=== PATIENT | male | born 1970 | race African-American/Black ===

== ENCOUNTER 2021-02-26 07:31 | Day surgery (SDC) | payer OTHER ==
[~2021-02-26] VITALS: Ht 182.9 cm; Wt 111.1 kg
[~2021-02-26 07:31] MED LIST: HYDR-3490 PO; NS 1,000 ML IV ONE
[2021-02-26] MEDS ORDERED: propofoL 200 MG/20 ML VIAL As Ordered ONE (09:35)
[2021-02-26] MEDS ORDERED: LIDOCAINE 2% 100MG/5ML SDV (FOR ANES.) As Ordered ONE (09:35)
[2021-02-26 10:00] VITALS: BP 124/86
== END 2021-02-26 10:11 | disposition home or self-care (01) ==
LOC: M OPP 07:31
PROVIDERS: ATTEND Internal Medicine Gastroenterology
DX: Z12.11 Encounter for screening for malignant neoplasm of colon (principal); Z80.0 Family history of malignant neoplasm of digestive organs; K63.5 Polyp of colon; K57.30 Diverticulosis of large intestine without perforation or abscess without bleeding; K64.8 Other hemorrhoids; Z79.899 Other long term (current) drug therapy